=== PATIENT | male | born 1955 | race Caucasian/White ===

== ENCOUNTER 2018-10-06 01:17 | Emergency (ER) | payer MEDICAID ==
[~2018-10-06] VITALS: Ht 180.3 cm; Wt 72.6 kg
[2018-10-06 01:17] VITALS: BP 134/93
--- NOTE | 2018-10-06 01:35 | NUR ---
[facility]
--- NOTE | 2018-10-06 01:50 | NUR ---
[facility] 13 (E4, V4, M5)
--- NOTE | 2018-10-06 01:50 | NUR ---
PT BIBA TO ER FOR ETOH. PT WAS FOUND IN [place] OUTSIDE OF A 711. PT ADMITTED TO DRINKING [facility]OLD[facility]. PT WAS AT [facility] AND LEFT AMA ON 10/05/18 AROUND 2129. PT IS EASILY ARROUSABLE WITH SLURRED SPEECH. VSS. PT ON NASAL CANNULA 2L. SAFETY MEASURES IN PLACE. WAITING FOR ERMD TO EVALUATE PT.
--- NOTE | 2018-10-06 02:25 | NUR ---
PT AT CT
--- NOTE | 2018-10-06 02:42 | NUR ---
PT BACK FROM CT
--- NOTE | 2018-10-06 03:13 | NUR ---
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 TO CALL BACK AT WITH ETA
[2018-10-06 03:16] LABS: BASOPHILS % (AUTO) 0.3 % (0.0-2.0); EOSINOPHILS # (AUTO) 0.7 K/uL (0-0.4); EOSINOPHILS % (AUTO) 6.6 % (0.0-4.0); HEMATOCRIT 35.7 % (36-52); HEMOGLOBIN 11.8 g/dL (12.0-18.0); LYMPHOCYTES # (AUTO) 1.7 K/uL (2.0-11.5); LYMPHOCYTES % (AUTO) 15.6 % (20.5-51.1); MEAN CORPUSCULAR HEMOGLOBIN 32 pg (27-31); MEAN CORPUSCULAR HGB CONC 33 g/dL (33-37); MEAN CORPUSCULAR VOLUME 96.4 fL (80-94); MONOCYTES # (AUTO) 0.6 K/uL (0.8-1.0); MONOCYTES % (AUTO) 5.6 % (1.7-9.3); NEUTROPHILS % (AUTO) 71.9 % (42.2-75.2); PLATELET COUNT (AUTO) 260 K/uL (140-450); RED CELL DISTRIBUTION WIDTH 14.6 % (11.6-13.7); WHITE BLOOD COUNT (AUTO) 11.1 K/uL (4.8-10.8)
--- NOTE | 2018-10-06 03:18 | NUR ---
CERVICAL COLLAR PLACED ON PT
--- NOTE | 2018-10-06 03:20 | NUR ---
Patient to be transferred to [facility] ER. Is being transferred due to [employer]BD[employer] HEMATOMA. Receiving facility has accepting physician and available space. ER physician has signed transfer form. Responsible constitution party has agreed to transfer and signed form. Patient belongings inventoried and will be sent with patient. Copy of nursing notes, lab reports, EKG, Physicians Orders and X-rays to be sent with patient. Report called to SAVANNA SANON at receiving facility. [facility] ambulance service has been called for transfer. ETA is 30 MIN.
[2018-10-06 03:25] LABS: ANION GAP 13.6 (8-16); CARBON DIOXIDE 25.2 mmol/L (21-32); CREATININE 0.9 mg/dL (0.7-1.3); POTASSIUM 3.8 mmol/L (3.5-5.1)
--- NOTE | 2018-10-06 03:30 | NUR ---
GAVE REPORT TO [facility]. PT CONDITION STABLE.
[2018-10-06 03:32] LABS: ALBUMIN 3.4 g/dL (3.4-5.0); TOTAL BILIRUBIN 0.3 mg/dL (0.0-1.0)
[2018-10-06 03:33] LABS: PROTHROMBIN TIME 9.8 secs (10.8-13.4)
[2018-10-06 03:40] VITALS: BP 122/79
== END 2018-10-06 03:50 | disposition short-term general hospital (02) ==
LOC: MED 01:17
DX: S06.5X9A Traumatic subdural hemorrhage with loss of consciousness of unspecified duration, initial encounter (principal); F10.129 Alcohol abuse with intoxication, unspecified; X58.XXXA Exposure to other specified factors, initial encounter
CPT/HCPCS: 36415; 70450; 72125; 80053; 82140; 82948; 83690; 85025; 85610; 85730; 99285